=== PATIENT | female | born 1950 | race Caucasian/White ===

== ENCOUNTER 2016-09-21 09:20 | Inpatient (IN) | payer OTHER ==
[2016-09-16 16:48] LABS: BASO % 0.4 %; BASO ABS # 0.04 K/uL (0-0.2); COMPLETE YES; EOS % 1.8 %; HEMATOCRIT 40.3 % (37-47); IG% 0.2 %; LYMPH ABS # 4.73 K/uL (1.2-3.4); MEAN CELL VOLUME 84.8 fL (80-100); MEAN CORPUSCULAR HEMOGLOBIN 28.2 pg (25-34); MEAN CORPUSCULAR HGB CONC 33.3 g/dl (32-36); MONO % 4.6 %; PLATELET COUNT 260 K/uL (130-400); RED BLOOD COUNT 4.75 M/uL (4.2-5.4); WHITE BLOOD COUNT 10.99 K/uL (4.8-10.8)
[2016-09-16 16:55] LABS: URINE APPEARANCE CLEAR (CLEAR); URINE BILIRUBIN NEG (NEG); URINE COLOR YELLOW; URINE EPITHELIAL CELL AUTO 20-30 /lpf (0-5); URINE NITRITE NEG (NEG); URINE SPECIFIC GRAVITY 1.014 (1.000-1.030); UROBILINOGEN NEG (NEG)
[2016-09-16 16:58] LABS: PROTHROMBIN TIME (PATIENT) 10.7 SECONDS (9.0-12.0)
[2016-09-16 17:03] LABS: MANUAL MICROSCOPIC REQUIRED? NO; REVIEW REQ? NO
[2016-09-16 17:28] LABS: BLOOD UREA NITROGEN 16 mg/dl (7-18); BUN/CREATININE RATIO 15.8 (10-20); CARBON DIOXIDE 31 mmol/L (21-32); CHLORIDE 106 mmol/L (98-107); GLUCOSE 143 mg/dl (70-99); POTASSIUM 3.7 mmol/L (3.5-5.1); SODIUM 143 mmol/L (136-145)
[2016-09-20 16:15] VITALS: BMI 35.0
--- NOTE | 2016-09-20 16:32 | HISTORY & PHYSICAL EXAMINATION ---
DATE OF ADMISSION: 09/21/2016 HISTORY OF PRESENT ILLNESS: The patient is 5 foot 10, 236 pounds, BMI of 46.09. A 65-year-old white female who presents with pain about her left knee. She had a rupture of her VMO repair and presents for repair of quad tendon VMO. She has previously undergone total knee arthroplasty 9 months prior and presents after noticing over the course of the last month, a palpable defect in the region of her VMO. She presents for VMO repair, possible poly change pending findings at time of examination. PAST MEDICAL HISTORY: Consistent with hypertension, mitral valve, anxiety, diabetes, acid reflux. PAST SURGICAL HISTORY: Consistent with previous total knee arthroplasty, previous ACL reconstruction and previous arthroscopy left knee. FAMILY HISTORY: Unremarkable and noncontributory. SOCIAL HISTORY: The patient denies history of smoking, alcohol use or recreational drug use. ALLERGIES: INCLUDE BETADINE. MEDICATIONS: Include acetaminophen 500 mg q. 8 hours, Celebrex 100 mg twice daily every day, Zofran 8 mg p.r.n., OxyContin 10 mg q. 12 hours p.r.n., Benicar 20/12.5 mg p.o. daily, simvastatin 20 mg p.o. at bedtime, Norvasc 5 mg p.o. daily, Nexium 40 mg p.o. daily. PAST MEDICAL HISTORY: Unremarkable. See history of present illness for pertinent positives. PHYSICAL EXAMINATION: GENERAL: Reveals a very pleasant 65-year-old white female with a disruption of her VMO quad tendon. She presents for VMO quad repair as noted above. She has failed attempts at conservative management, has palpable defect with weakness of extension to her knee. X-rays revealed no evidence of other bony or osseous abnormalities noted. HEAD, EYES, EARS, NOSE, AND THROAT: Unremarkable, atraumatic, normocephalic. HEART: Regular at 68 beats per minute. No murmurs are noted. LUNGS: Clear, no rales, rhonchi, or wheezes noted. ABDOMEN: Soft, nontender, nondistended. Bowel sounds are present in all 4 quadrants. RECTAL: No rectal examination was performed. MUSCULOSKELETAL EXAMINATION: Consistent with that of a palpable defect of the VMO quad from a disruption of VMO quad repair. The patient presents for VMO quad repair, postoperative pain management, DVT prophylaxis, antibiotics as noted above.
[~2016-09-21] VITALS: Ht 175.3 cm; Wt 107.3 kg
[2016-09-21] VITALS (8 sets, daily range): BP systolic 110–158; BP diastolic 61–81; PULSE 51–70; TEMP 36.4–36.9; O2SAT 94–100; Ht 175.3 cm; Wt 107.3 kg
--- NOTE | 2016-09-21 06:56 | History & Physical Bridge Note ---
H&P Re-Evaluation Bridge Note: I have examined the patient, reviewed the History & Physical and in the interval since the performance of the History & Physical I have noted the following changes of clinical significance: No changes noted
[~2016-09-21 09:20] MED LIST: ACET-1256 PO; ACT15 PO; ALPR-411 PO; AMLO-110 PO; AMR2 PO; BUPIVACAINE 0.5 % 5 MG/1 ML PF 10ML VIAL ONE; CALC600T9 PO; CEFAZOLIN 1000MG/55 ML D5W IV SCH; COEN75CA PO; CYCL0.052 OP; KCLP20 PO; LACTATED RINGER'S 1000ML 1,000 ML IV SCH; MACU HEALTH; MISSING PHYSICIAN SIGNATURE ON ORDER SCH; MULT-730 PO; NXM/40 PO; OLME40TA30 PO; OMEG10007 PO; OXYC1TAB3 PO; PARO1TAB27 PO
[2016-09-21] MEDS ORDERED: LIDOCAINE HCL 2% 2 ML VIAL (20MG/ML) ONE (09:38)
[2016-09-21] MEDS ORDERED: PROPOFOL IV EMULSION 10 MG/ML 20 ML VIAL IV ONE (09:38)
[2016-09-21] MEDS ORDERED: MIDAZOLAM HCL 1 MG/ML 2ML VIAL ONE (09:38)
[2016-09-21] MEDS ORDERED: FENTANYL CITRATE INJ 50 MCG/1 ML 2 ML VIAL ONE (09:39)
[2016-09-21] MEDS ORDERED: MEPERIDINE HCL 25 MG/ML CARP IV PRN (09:45)
[2016-09-21] MEDS ORDERED: MoRPHine SULFATE 10 MG/ML CARP/VIAL IV PRN ×3 (09:45→17:15)
[2016-09-21] MEDS ORDERED: EpHEDrine SULFATE INJ 50 MG/ML AMP IV PRN (09:45)
[2016-09-21] MEDS ORDERED: ONDANSETRON INJ 2 MG/ML 2 ML VIAL IV PRN ×2 (09:45→12:30)
[2016-09-21] MEDS ORDERED: FENTANYL CITRATE INJ 50 MCG/1 ML 2 ML VIAL IV PRN (09:45)
[2016-09-21] MEDS ORDERED: ATROPINE SULFATE 0.1 MG/ML 5ML SYR IV PRN (09:45)
[2016-09-21] MEDS ORDERED: CEFAZOLIN IV 2,000 MG/60 ML D5W IV ONE (10:29)
[2016-09-21] MEDS ORDERED: NURSING VERBAL MED ORDER STA (10:33)
[2016-09-21] MEDS ORDERED: SCOPOLAMINE 1.5 MG TDSY TD ONE (10:38)
[2016-09-21] MEDS ORDERED: BACITRACIN 50000 UNIT VIAL ONE (11:05)
[2016-09-21] MEDS ORDERED: ONDANSETRON INJ 2 MG/ML 2 ML VIAL ONE (11:50)
--- NOTE | 2016-09-21 12:00 | [facility] Post Operative Brief Note ---
Immediate Operative Summary Operative Date Sep 21, 2016. Pre-Operative Diagnosis quad tear vmo tear lt knee sp tka Post-Operative Diagnosis same Procedure(s) Performed VMO quad repair with poly change to 5x12 poly sn journey 2 and lateral release Surgeon margoth Blasting Cap Assembler Surgeon(s) hallie Estimated Blood Loss 5cc Findings tear vmo quad laxity mcl lcl Specimens none Complication(s) None Disposition Recovery Room / PACU
[2016-09-21] MEDS ORDERED: BISACODYL 10 MG SUPP PR PRN (12:30)
[2016-09-21] MEDS ORDERED: MAGNESIUM HYDROXIDE SUSP 30 ML UDC PO PRN (12:30)
[2016-09-21] MEDS ORDERED: SOD PHOSPHATE/SOD BIPHOSPHATE ENEMA 132 ML BTL PR PRN (12:30)
[2016-09-21] MEDS ORDERED: ALUMINUM/MAGNESIUM/SIMETH (MAALOX MAX) 30 ML UDC PO PRN (12:30)
[2016-09-21] MEDS ORDERED: MoRPHine SULFATE 2 MG/ML CARP IV PRN ×4 (12:30→17:15)
--- NOTE | 2016-09-21 12:38 | OPERATIVE REPORT ---
DATE OF OPERATION: 09/21/2016 DATE: 09/21/2016. PREOPERATIVE DIAGNOSIS: Tear quadriceps and vastus medialis oblique left total knee arthroplasty with medial and lateral collateral ligament laxity. POSTOPERATIVE DIAGNOSIS: Same. PROCEDURE: VMO quad repair left knee with poly exchange from a 5 x 10 mm Journey II poly to a 5 x 12 mm Journey II poly. SURGEON: Dr. Wyman. FIXED INCOME MANAGER: Shar Fernando PA-C, who was necessary for prepping, draping, retraction, wound closure of the deep fascial, subQ and skin and was necessary for the case. ESTIMATED BLOOD LOSS: 5 mL. COMPLICATIONS: None. TOURNIQUET TIME: 40 minutes. HISTORY OF PRESENT ILLNESS: The patient is a very pleasant 65-year-old white female who presents after having undergone a knee replacement approximately a year prior. She presents as she had been doing well and developed a palpable defect in the region of her VMO attachment with some mild tracking of her patella. At the time of surgery, the above findings are noted as well as laxity of the medial and lateral collateral ligaments. For this reason the poly was changed to a size 12 from a 10. OPERATION AND FINDINGS: PROCEDURE: After proper prepping and draping of the left lower extremity, an incision was made in the region of the previous incision. Dissection was carried down to the region of the palpable defect. Palpable defect was consistent with that of a partial dehiscence of the deep repair of VMO quad tendon. Subsequently, the patellofemoral tracking was evaluated. The scar from the anterior synovium was all excised. The partial synovectomy was performed. The poly was removed. It was upsized to a size 12, which gave excellent stability in both full extension, mid flexion and flexion in both medial and lateral planes. Subsequently, the wound was irrigated with copious amounts of sterile saline solution. The poly was upsized to a 5 x 12 mm poly. Stability was noted to be excellent. The patellofemoral joint tracking was reevaluated. An extra synovial lateral retinacular release was performed. Wound was irrigated with copious amounts of sterile saline solution. Subsequently, the VMO was repaired after excising scar tissue with #2 FiberWire as well as #1 Vicryl. Excellent tracking patellofemoral mechanism was noted to be present at the time. Meticulous hemostasis was obtained and maintained. The wound was once again irrigated with copious amounts of sterile saline solution. Skin was closed with 2-0 Vicryl and skin clips. A sterile compression dressing was placed. The patient was placed in a knee immobilizer and taken to recovery room in stable condition. Estimated tourniquet time 40 minutes. Blood loss 5 mL. I attest to the content of the Intraoperative Record and any orders documented therein. Any exceptio ns are noted below.
[2016-09-21] MEDS ORDERED: PHARMACY GLYCEMIC MGMT CONSULT PRN (13:25)
--- NOTE | 2016-09-21 13:28 | Anesthesiology Progress Note ---
Anesthesia Post Op Note Date & Time Sep 21, 2016 at 13:28 Vital Signs Pain Intensity: 0 Vital Signs Past 12 Hours Date Time Temp Pulse Resp B/P Pulse Ox O2 Delivery O2 Flow Rate FiO2 09/21/16 13:15 49 16 110/58 92 Room Air 09/21/16 13:05 50 16 126/67 95 Room Air 09/21/16 12:55 36.4 50 16 126/62 95 Room Air 09/21/16 12:40 51 16 119/75 97 Room Air 09/21/16 12:30 60 16 121/63 100 Room Air 09/21/16 12:23 36 71 16 140/67 100 Room Air 2 09/21/16 09:46 36.5 63 20 158/72 97 Room Air Notes Mental Status: alert / awake / arousable, participated in evaluation Pt Amnestic to Procedure: Yes Nausea / Vomiting: adequately controlled Pain: adequately controlled Airway Patency, RR, SpO2: stable & adequate BP & HR: stable & adequate Hydration State: stable & adequate Neuraxial Anesthesia: was administered, sensory block is resolving Anesthetic Complications: no major complications apparent
--- NOTE | 2016-09-21 14:02 | Pharmacy Progress Note ---
Glycemic Control Intl Consult Date of Service Sep 21, 2016. Scope Glycemic Pharmacist consulted by Shar Fernando PA-C on 09/21/16 for glycemic control and to write orders per [facility] inpatient glycemic control protocol Objective Weight (Kilograms): 107.27 HbA1c 6.4% on 04/11/16 Recent Pertinent Medications Outpatient Anti-diabetic Regimen: * Amaryl 2mg PO QAM (last taken 09/20/16) * Actos 30mg PO QAM (last taken 09/20/16) Risk Factors for Insulin Resistance: * Recent Surgery * Diet Assessment & Plan ASSESSMENT: * 65yo T2DM female with presumed adequate glycemic control per recent A1c 6.4% in 03/2016 * This value is outdated - will re-order per protocol * Pt is maintained on oral antidiabetic agents as an outpatient * Oral agents are not recommended for inpatient use d/t drug interactions, changing PO intake, and difficulty titrating for acute hyper/hypoglycemia. ADA recommends re-initiating outpatient oral agents 1-2 days prior to discharge if/ when appropriate if they were held on admission. * Will hold oral agents for admission and utilize SQ basal bolus insulin regimen which is the recommended regimen for inpatient glycemic control. * Will initiate weight based insulin dosing for insulin regina patient and titrate based on BSG trends. * Start basal insulin only if needed for sustained hyperglycemia (BSG > 180mg/ dl) * ADA & AACE recommend a goal blood sugar range 140-180 mg/dl for the majority of critically ill & non-critically ill patients. However, more stringent targets may be selected in individual cases. Will utilize more stringent goal of 110-140mg/dl based on patient age & comorbidities. Additionally, tighter glycemic control is warranted to facilitate wound/infection healing. PLAN FOR INPATIENT GLYCEMIC CONTROL: * Hold outpatient oral diabetes medications * May resume 1-2 days prior to discharge after renal function and PO intake assessed * Will d/c CR if/when oral agents resumed * Start Basal insulin if BSG > 180mg/dl * Consider Lantus 10 units * Start bolus insulin while oral agents on hold. Use NovoLog per scale ACHS or Q6hrs while NPO * Goal Range: Low 110 mg/dL - High 140 mg/dL * Correction Factor: 30 mg/dL/unit * Nutritional / Prandial insulin per carb ratio of 1 unit per 10 grams CHO consumed * Order A1c for tomorrow with AM labs * Please note that the plan above was derived based on current level of insulin resistance and hospital stress. These recommendations are appropriate for inpatient admission only. Plan of care upon discharge will need to be reassessed to avoid potential outpatient hypo/hyperglycemia. Thank you.
[2016-09-21] MEDS ORDERED: GLUCOSE 40% GEL 15 GM TUBE PO PRN (14:15)
[2016-09-21] MEDS ORDERED: GLUCAGON FOR INJ 1 MG VIAL SQ PRN (14:15)
[2016-09-21] MEDS ORDERED: GLUCOSE 10 TABS/TUBE PO PRN (14:15)
[2016-09-21] MEDS ORDERED: DEXTROSE 50% 50 ML SYR IV PRN (14:15)
[2016-09-21] MEDS ORDERED: MoRPHine SULFATE 4 MG/ML 1 ML CARP\\VIAL IV PRN ×2 (14:30→17:15)
[2016-09-21] MEDS: OXYCODONE HCL IR 5 MG TAB (IMMEDIATE RELEASE) PO PRN ×3 (14:39→23:57)
--- NOTE | 2016-09-21 14:54 | DIAGNOSTIC IMAGING REPORT ---
LEFT KNEE 1 OR 2 VIEWS ROUTINE CLINICAL HISTORY: Postop knee arthroplasty COMPARISON: 05/04/2016 DISCUSSION: There are postsurgical changes of a total left knee arthroplasty and patellar resurfacing. No acute fractures or dislocations are visualized. There is a suprapatellar joint effusion. There is air in the soft tissues consistent with recent surgery. There are overlying skin mikey and surgical drains. IMPRESSION: Postsurgical changes of a total left knee arthroplasty. Electronically signed by: Philipp Greer M.D. 09/21/2016 2:53 PM Dictated Date/Time: 09/21/2016 2:51 PM
[2016-09-21] MEDS: CHECK SCOPOLAMINE PATCH PLACEMENT SCH ×2 (15:34→23:50)
[2016-09-21] MEDS: SODIUM CHLORIDE 0.9% 1000ML 1,000 ML IV SCH ×2 (15:34→23:56)
[2016-09-21] MEDS ORDERED: NURSING VERBAL MED ORDER ONE ×4 (17:00→18:30)
[2016-09-21] MEDS: ACETAMINOPHEN 500 MG TAB PO SCH (17:11)
[2016-09-21] MEDS ORDERED: KETOROLAC TROMETHAMINE 30 MG/ML VIAL IV. ONE (17:30)
[2016-09-21] MEDS: INSULIN ASPART 100 UNITS/ML 3 ML PEN SC SCH ×2 (18:13→20:45)
[2016-09-21] MEDS: CEFAZOLIN IV 2,000 MG in DEXTROSE 5% 50ML 50 ML IV SCH (20:41)
[2016-09-21] MEDS: CALCIUM 600MG + VIT D 400 IU TAB PO SCH (20:42)
[2016-09-21] MEDS: DOCUSATE SODIUM 100 MG CAP PO SCH (20:43)
[2016-09-21] MEDS: ASPIRIN 81 MG ECTAB PO SCH (20:44)
[2016-09-21] MEDS ORDERED: ALPRAZOLAM 0.5 MG TAB PO SCH (21:00)
[2016-09-21] MEDS ORDERED: SENNA 8.6 MG TAB PO SCH (21:00)
[2016-09-21] MEDS: OXYCODONE HCL 10 MG TABCR (OXYCONTIN) PO SCH (21:00)
[2016-09-21] MEDS ORDERED: KETOROLAC TROMETHAMINE 15 MG/ML VIAL IV. PRN (23:00)
[2016-09-22] MEDS: ACETAMINOPHEN 500 MG TAB PO SCH ×2 (01:55→09:45)
[2016-09-22 03:11] VITALS: BP 110/58; PULSE 59; TEMP 36.8; O2SAT 95
[2016-09-22] MEDS: CEFAZOLIN IV 2,000 MG in DEXTROSE 5% 50ML 50 ML IV SCH (03:54)
[2016-09-22] MEDS ORDERED: CEFAZOLIN 2000 MG/60 ML D5W 60 ML IV SCH (06:00)
[2016-09-22 06:23] LABS: INR 1.1 (0.9-1.1); PROTHROMBIN TIME (PATIENT) 11.3 SECONDS (9.0-12.0)
[2016-09-22 06:45] LABS: BUN/CREATININE RATIO 11.7 (10-20); CALCIUM 8.1 mg/dl (8.5-10.1); CREATININE 1.1 mg/dl (0.60-1.20); POTASSIUM 3.7 mmol/L (3.5-5.1)
[2016-09-22 06:55] VITALS: BP 108/68; PULSE 64; TEMP 36.8; O2SAT 93
--- NOTE | 2016-09-22 07:00 | Orthopedic Progress Note ---
Orthopedic Progress Note Date of Service Sep 22, 2016. Subjective Post OP Day: 1 Reports: feeling well, pain controlled w PO medications, Denies: SOB, calf pain , chest pain, complaints, light headedness, nausea / vomiting Objective calves soft nontender, N/V intact, capillary refill less than 2 sec., dressing C /D/I, A&O x3, toes mobile Date Time Temp Pulse Resp B/P Pulse Ox O2 Delivery O2 Flow Rate FiO2 09/22/16 06:55 36.8 64 19 108/68 93 Room Air 09/22/16 03:11 36.8 59 14 110/58 95 Room Air 09/21/16 23:40 Room Air 09/21/16 22:57 36.9 60 14 110/61 94 Room Air 09/21/16 20:39 36.6 64 16 130/72 94 Room Air 09/21/16 19:05 Room Air 09/21/16 16:46 36.7 70 16 145/70 94 09/21/16 15:24 55 16 151/79 100 09/21/16 14:54 36.5 53 18 133/81 98 Room Air 09/21/16 14:26 100 Nasal Cannula 2.0 09/21/16 14:20 36.5 51 18 158/72 100 Room Air 09/21/16 13:50 36.4 54 16 135/71 100 Nasal Cannula 2.0 09/21/16 13:50 100 Nasal Cannula 2.0 09/21/16 13:35 53 14 103/54 92 Room Air 09/21/16 13:25 49 16 127/54 93 Room Air 09/21/16 13:15 49 16 110/58 92 Room Air 09/21/16 13:05 50 16 126/67 95 Room Air 09/21/16 12:55 36.4 50 16 126/62 95 Room Air 09/21/16 12:40 51 16 119/75 97 Room Air 09/21/16 12:30 60 16 121/63 100 Room Air 09/21/16 12:23 36 71 16 140/67 100 Room Air 2 09/21/16 09:46 36.5 63 20 158/72 97 Room Air Laboratory Results 24 Hours: Test 09/22/16 05:45 Prothromb Time International Ratio 1.1 Prothrombin Time 11.3 SECONDS Assessment & Plan Assessment: POD #1 s/p left knee poly change and med retinaculum repair -doing well -dvt proph with tru/scd/asa -plan for d/c home today after PT -f/u in office in 2 weeks Discharge Planning Discharge Planning: home with oppt DVT Prophylaxis: TEDs, SCDs, ASA
[2016-09-22] MEDS ORDERED: ASPEC81 PO (07:04)
[2016-09-22] MEDS ORDERED: CLB200 PO (07:04)
[2016-09-22] MEDS ORDERED: OXYSR10 PO (07:04)
[2016-09-22] MEDS ORDERED: ACET-1138 PO (07:04)
[2016-09-22] MEDS ORDERED: RXC5 PO (07:04)
--- NOTE | 2016-09-22 07:14 | Discharge Instructions ---
Discharge Instructions Date of Service Sep 22, 2016. Admission Reason for Admission: Lt Knee Other Muscle(S) & Tendon(S) Strain;Z01.812 Discharge Discharge Diagnosis / Problem: left knee medial retinaculum repair and poly exchange Discharge Goals Goal(s): Decrease discomfort, Improve function, Increase independence Activity Recommendations Activity Limitations: as noted below Weightbearing Status: Left weightbearing (as tolerated) . Instructions / Follow-Up Instructions / Follow-Up ACTIVITY RECOMMENDATIONS: SELF CARE INSTRUCTIONS AFTER TOTAL KNEE REPLACEMENT A. You may need to continue a physical therapy program after discharge from the hospital. There are several options available to you. Your doctor will assist you in selecting the best one for you. 1. An out-patient facility 2 to 3 times a week for therapy or home therapy. 2. Continue working on all exercises taught to you in the hospital. Your goals should be to increase bending of your knee to 90 degrees and beyond and to fully straighten your knee. B. You may progress at your own pace from walking with a walker or crutches to a cane; then to no assistive devices. C. Make walking a part of your daily routine. Be up as much as comfortable with rest periods throughout the day. Rest with leg elevation is very important. Use the ice wrap frequently for the first 3-4 weeks. D. There are no restrictions on activities. You may ride in a car, shop, participate in childcare director and all social activities. E. Wear the long elastic stockings (ALFIE hose) 20 hours a day for 2 weeks after surgery. They can be removed several times a day for laundering and for a bath. F. You may shower, no tub baths until cleared by your doctor. SPECIAL CARE INSTRUCTIONS: VERY IMPORTANT TO READ AND REVIEW A. There are a few signs you need to watch for after you are home. Call [facility] if you notice any of the followin. Increased severe knee pain. Some pain is expected especially when you exercise. 2. Increased swelling in your leg or knee; pain or swelling of the calf muscle in either lower leg. 3. Any fluid drainage from the incision. 4. Shortness of breath or chest pain. B. Please call [facility] at if you have any concerns or questions about your operation or recovery. The doctor or his nurse will return your call promptly. C. You must take antibiotics before dental work, bladder, bowel or other surgery. Your doctor will provide you with a permanent care to carry describing this precaution. IMPORTANT: * REMEMBER TO TAKE ASPIRIN, 81 MG, TWICE DAILY FOR 4 WEEKS UNLESS OTHERWISE DIRECTED. THIS IS YOUR BLOOD THINNER. * HIGH RISK PATIENTS MAY BE PRESCRIBED A STRONGER BLOOD THINNER. THIS WILL BE PROVIDED AT DISCHARGE. * CALL IF INCREASED PAIN, REDNESS, DRAINAGE OR FEVER GREATER THAT 101. * WEAR ALFIE HOSE 20 HOURS PER DAY FOR 2 WEEKS. * YOU MAY HAVE A LARGE BAND-AID LIKE DRESSING (SILVERON). THIS WILL REMAIN ON YOUR INCISION FOR 7 DAYS, THEN CAN BE REMOVED. IF INCISION IS LEAKING THROUGH DRESSING, CALL THE OFFICE . FOLLOW UP VISIT: If appointment is not already scheduled: Please call [facility] to make a follow-up appointment for 2 weeks after your surgery at . Current Hospital Diet Patient's current hospital diet: Diabetes Type 2 Diet Discharge Diet Recommended Diet: Diabetes Type 2 Diet Procedures Procedures Performed: Left Knee Open Repair of Rupture Vastus Medialis Oblique, with Poly Exchange Pending Studies Studies pending at discharge: no Laboratory Results Hemoglobin A1c Test 09/22/16 05:45 Range/Units Medical Emergencies . Who to Call and When: Medical Emergencies: If at any time you feel your situation is an emergency, please call [phone] immediately. . Non-Emergent Contact Non-Emergency issues call your: Primary Care Provider, Surgeon . "Provider Documentation" section prepared by Shar Fernando. VTE Core Measure Inpt VTE Proph given/why not?: Other Anticoagulation (ASA 81mg po bid x 1 month ), Lorena Antonio, SCD's [place] Drug Monitoring Program Search Results: patient reviewed within database, no issues identified
[2016-09-22] MEDS: CHECK SCOPOLAMINE PATCH PLACEMENT SCH (07:29)
[2016-09-22 07:30] LABS: MEAN CELL VOLUME 86.7 fL (80-100); MEAN CORPUSCULAR HEMOGLOBIN 28.6 pg (25-34); MEAN CORPUSCULAR HGB CONC 32.9 g/dl (32-36); PLATELET COUNT 179 K/uL (130-400); RED BLOOD COUNT 3.92 M/uL (4.2-5.4); WHITE BLOOD COUNT 8.65 K/uL (4.8-10.8)
--- NOTE | 2016-09-22 07:30 | Discharge Summary ---
Orthopedic Discharge Summary Admission Date/Reason Sep 21, 2016 at 12:38 Lt Knee Other Muscle(S) & Tendon(S) Strain;Z01.812. Discharge Date/Disposition Sep 22, 2016 Home Diagnosis Principal Diagnosis: left knee quad tear Procedure(s) Performed VMO quad repair left knee with poly exchange from a 5 x 10 mm Journey II poly to a 5 x 12 mm Journey II poly. Consultations NONE Medication Reconciliation New Medications: Celecoxib (Celebrex) 200 Mg Cap 200 MG PO BID for 30 Days, #60 CAP Acetaminophen (Tylenol Extra Strength) 500 Mg Tab 1000 MG PO Q8H, #126 TAB Aspirin (Aspirin EC Low Dose) 81 Mg Ectab 81 MG PO BID for 30 Days, #60 TABS Oxycodone HCl (Oxycontin) 10 Mg Tabcr 10 MG PO Q12, #20 Oxycodone HCl (Oxycodone HCl) 5 Mg Tab 5-10 MG PO Q4H PRN for Pain, #60 TAB Continued Medications: Alprazolam (Xanax) 0.5 Mg Tab 0.5 MG PO HS, TAB Amlodipine (Norvasc) 5 Mg Tab 5 MG PO QAM, TAB Calcium Carbonate-Vitamin D (Calcium + D) 1 Tab Tab 400 INTUNIT PO BID Cyclosporine (Ophth) (Restasis) 0.05 % Emu 1 DROP OP QAM, BTL Esomeprazole Magnesium (Nexium) 40 Mg Capcr 40 MG PO QAM, 0 Refills Glimepiride (Glimepiride) 2 Mg Tab 2 MG PO QAM Multiple Vitamins W/ Minerals (Alive Womens 50+) 1 Tab Tab 1 TAB PO QAM CHEWY TABLET Olmesartan/Hctz (Benicar Hct 40/12.5) Tab 1 TAB PO QAM, TAB Paroxetine (Paxil) 20 Mg Tab 40 MG PO QAM, 0 Refills Pioglitazone (Actos) 15 Mg Tab 30 MG PO QAM Potassium Chloride (Klor-Con) 20 Meq Pow 1 TAB PO QAM [[facility] [employer]] () Unknown Strength Unknown Dose MESO-ZEAXANTHIN 10 MG IN AM LUTEIN 10 MG ZEAXANTHIN 2 MG (WRITTEN OFF PILL BOTTLE) THREE ITEMS IN ONE PILL - TAKES ONE PILL PER DAY - PATIENT WILL BRING OWN Discontinued Medications: Acetaminophen (Tylenol) 500 Mg Tab 1000 MG PO Q8H PRN for RN, TAB Coenzyme Q10 (Ubidecarenone) (Co Q-10) 75 Mg Cap 100 MG PO QPM, CAP Fish Oil (Ronceverte-3) 1 Ea Cap 1 CAP PO QAM, CAP Oxycodone Ir (Roxicodone Ir) 5 Mg Tab 1-2 TAB PO Q4H PRN for Severe Pain, #12 TAB Admission Physical Exam As per Admitting History & Physical. Hospital Course Patient was a same day admission after undergoing a successful left knee quad repair and poly exchange. she tolerated the procedure well. Post-operatively, her activity was progressed and well tolerated. Please refer to daily progress notes and PT notes for complete details. After exam on 09/22/16, patient felt to be stable for discharge home with OPPT. Patient will f/u in the office in 2 weeks for further evaluation including x-rays and incision check, sooner if having any issues or concerns. Below are pertinent labs/studies during their hospital stay: Last Vital Signs Documentation Date Time Temp Pulse Resp B/P Pulse Ox O2 Delivery O2 Flow Rate FiO2 09/22/16 06:55 36.8 64 19 108/68 93 Room Air 09/21/16 14:26 2.0 Test 09/22/16 05:45 Prothromb Time International Ratio 1.1 Prothrombin Time 11.3 SECONDS Test 09/16/16 15:38 09/21/16 20:37 09/22/16 05:45 Range/Units RDW Standard Deviation 50.9 36.4-46.3 fL RDW Coefficient of Variation 16.4 11.5-14.5 % White Blood Count 10.99 4.8-10.8 K/uL Red Blood Count 4.75 4.2-5.4 M/uL Hemoglobin 13.4 12.0-16.0 g/dL Hematocrit 40.3 37-47 % Mean Corpuscular Volume 84.8 80-100 fL Mean Corpuscular Hemoglobin 28.2 25-34 pg Mean Corpuscular Hemoglobin Concent 33.3 32-36 g/dl Platelet Count 260 130-400 K/uL Mean Platelet Volume 10.0 7.4-10.4 fL Neutrophils (%) (Auto) 50.0 % Lymphocytes (%) (Auto) 43.0 % Monocytes (%) (Auto) 4.6 % Eosinophils (%) (Auto) 1.8 % Basophils (%) (Auto) 0.4 % Neutrophils # (Auto) 5.49 1.4-6.5 K/uL Lymphocytes # (Auto) 4.73 1.2-3.4 K/uL Monocytes # (Auto) 0.51 0.11-0.59 K/uL Eosinophils # (Auto) 0.20 0-0.5 K/uL Basophils # (Auto) 0.04 0-0.2 K/uL Immature Granulocyte % (Auto) 0.2 % Immature Granulocyte # (Auto) 0.02 0.00-0.02 K/uL Activated Partial Thromboplast Time 27.0 21.0-31.0 SECONDS Partial Thromboplastin Ratio 1.0 Urine Color YELLOW Urine Appearance CLEAR CLEAR Urine pH 5.0 4.5-7.5 Urine Specific [place] 1.014 1.000-1.030 Urine Protein NEG NEG Urine Glucose (UA) NEG NEG Urine Ketones NEG NEG Urine Occult Blood NEG NEG Urine Nitrite NEG NEG Urine Bilirubin NEG NEG Urine Urobilinogen NEG NEG Urine Leukocyte Esterase MODERATE NEG Urine WBC (Auto) 10-30 0-5 /hpf Urine RBC (Auto) 5-10 0-4 /hpf Urine Hyaline Casts (Auto) 1-5 0-5 /lpf Urine Epithelial Cells (Auto) 20-30 0-5 /lpf Urine Bacteria (Auto) NEG NEG Bedside Glucose 121 70-90 mg/dl Prothrombin Time 11.3 9.0-12.0 SECONDS Prothromb Time International Ratio 1.1 0.9-1.1 Sodium Level 140 136-145 mmol/L Potassium Level 3.7 3.5-5.1 mmol/L Chloride Level 106 98-107 mmol/L Carbon Dioxide Level 29 21-32 mmol/L Anion Gap 5.0 3-11 mmol/L Blood Urea Nitrogen 13 7-18 mg/dl Creatinine 1.10 0.60-1.20 mg/dl Est Creatinine Clear Calc Drug Dose 66.5 ml/min Estimated GFR () 61.0 Estimated GFR (Non- 52.6 BUN/Creatinine Ratio 11.7 10-20 Random Glucose 125 70-99 mg/dl Calcium Level 8.1 8.5-10.1 mg/dl Discharge Instructions ACTIVITY RECOMMENDATIONS: SELF CARE INSTRUCTIONS AFTER TOTAL KNEE REPLACEMENT A. You may need to continue a physical therapy program after discharge from the hospital. There are several options available to you. Your doctor will assist you in selecting the best one for you. 1. An out-patient facility 2 to 3 times a week for therapy or home therapy. 2. Continue working on all exercises taught to you in the hospital. Your goals should be to increase bending of your knee to 90 degrees and beyond and to fully straighten your knee. B. You may progress at your own pace from walking with a walker or crutches to a cane; then to no assistive devices. C. Make walking a part of your daily routine. Be up as much as comfortable with rest periods throughout the day. Rest with leg elevation is very important. Use the ice wrap frequently for the first 3-4 weeks. D. There are no restrictions on activities. You may ride in a car, shop, participate in hydrogenation still operator and all social activities. E. Wear the long elastic stockings (ALFIE hose) 20 hours a day for 2 weeks after surgery. They can be removed several times a day for laundering and for a bath. F. You may shower, no tub baths until cleared by your doctor. SPECIAL CARE INSTRUCTIONS: VERY IMPORTANT TO READ AND REVIEW A. There are a few signs you need to watch for after you are home. Call [facility] if you notice any of the followin. Increased severe knee pain. Some pain is expected especially when you exercise. 2. Increased swelling in your leg or knee; pain or swelling of the calf muscle in either lower leg. 3. Any fluid drainage from the incision. 4. Shortness of breath or chest pain. B. Please call [facility] at if you have any concerns or questions about your operation or recovery. The doctor or his nurse will return your call promptly. C. You must take antibiotics before dental work, bladder, bowel or other surgery. Your doctor will provide you with a permanent care to carry describing this precaution. IMPORTANT: * REMEMBER TO TAKE ASPIRIN, 81 MG, TWICE DAILY FOR 4 WEEKS UNLESS OTHERWISE DIRECTED. THIS IS YOUR BLOOD THINNER. * HIGH RISK PATIENTS MAY BE PRESCRIBED A STRONGER BLOOD THINNER. THIS WILL BE PROVIDED AT DISCHARGE. * CALL IF INCREASED PAIN, REDNESS, DRAINAGE OR FEVER GREATER THAT 101. * WEAR ALFIE HOSE 20 HOURS PER DAY FOR 2 WEEKS. * YOU MAY HAVE A LARGE BAND-AID LIKE DRESSING (SILVERON). THIS WILL REMAIN ON YOUR INCISION FOR 7 DAYS, THEN CAN BE REMOVED. IF INCISION IS LEAKING THROUGH DRESSING, CALL THE OFFICE . FOLLOW UP VISIT: If appointment is not already scheduled: Please call [facility] to make a follow-up appointment for 2 weeks after your surgery at .
[2016-09-22] MEDS: OXYCODONE HCL IR 5 MG TAB (IMMEDIATE RELEASE) PO PRN ×2 (07:39→14:10)
[2016-09-22 08:48] LABS: ESTIMATED AVERAGE GLUCOSE 126 mg/dl; HA1C FLAG Normal (Normal)
[2016-09-22] MEDS ORDERED: AMLODIPINE BESYLATE 5 MG TAB PO SCH (09:00)
[2016-09-22] MEDS ORDERED: PANTOprazole SOD 40 MG TAB PO SCH (09:00)
[2016-09-22] MEDS ORDERED: CEROVITE ADV FORMULA TAB PO SCH (09:00)
[2016-09-22] MEDS ORDERED: PAROXETINE 20 MG TAB PO SCH (09:00)
[2016-09-22] MEDS ORDERED: POTASSIUM CHLORIDE PWD 20 MEQ PACK PO SCH (09:00)
[2016-09-22] MEDS ORDERED: MULTIVITAMIN TAB PO SCH (09:00)
[2016-09-22 09:38] VITALS: BP 144/73; PULSE 82; O2SAT 93
[2016-09-22] MEDS: OXYCODONE HCL 10 MG TABCR (OXYCONTIN) PO SCH (09:46)
[2016-09-22] MEDS: ASPIRIN 81 MG ECTAB PO SCH (09:46)
[2016-09-22] MEDS: DOCUSATE SODIUM 100 MG CAP PO SCH (09:46)
[2016-09-22] MEDS: CALCIUM 600MG + VIT D 400 IU TAB PO SCH (09:46)
[2016-09-22] MEDS: INSULIN ASPART 100 UNITS/ML 3 ML PEN SC SCH ×2 (09:51→13:47)
--- NOTE | 2016-09-22 10:44 | Anesthesiology Progress Note ---
Anesthesia Post Op Note Date & Time Sep 22, 2016 at 10:43 Vital Signs Vital Signs Past 12 Hours Date Time Temp Pulse Resp B/P Pulse Ox O2 Delivery O2 Flow Rate FiO2 09/22/16 09:38 82 93 09/22/16 07:20 Room Air 09/22/16 06:55 36.8 64 19 108/68 93 Room Air 09/22/16 03:11 36.8 59 14 110/58 95 Room Air 09/21/16 23:40 Room Air 09/21/16 22:57 36.9 60 14 110/61 94 Room Air Notes Mental Status: alert / awake / arousable, participated in evaluation Pt Amnestic to Procedure: Yes Nausea / Vomiting: adequately controlled Pain: adequately controlled Airway Patency, RR, SpO2: stable & adequate BP & HR: stable & adequate Hydration State: stable & adequate Neuraxial Anesthesia: was administered, sensory block resolved Anesthetic Complications: no major complications apparent
[2016-09-22] MEDS: SODIUM CHLORIDE 0.9% 1000ML 1,000 ML IV SCH (11:19)
[2016-09-22 13:39] VITALS: BP 144/73; PULSE 82; TEMP 36.8; O2SAT 93
== END 2016-09-22 15:10 | disposition home or self-care (01) | DRG 489 ==
LOC: ENRESERVTM → ENRESERVDT → C.ACU 09:20 → C.3E 12:38
PROVIDERS: ADMIT Orthopaedic Surgery; ATTEND Orthopaedic Surgery
PROC: 0SUW09Z Supplement Left Knee Joint, Tibial Surface with Liner, Open Approach (ICD-10-PCS; principal; 2016-09-21 11:30)
PROC: 0SPD09Z Removal of Liner from Left Knee Joint, Open Approach (ICD-10-PCS; principal; 2016-09-21 11:30)
PROC: 0KQR0ZZ Repair Left Upper Leg Muscle, Open Approach (ICD-10-PCS; principal; 2016-09-21 11:30)
DX: S76.112A Strain of left quadriceps muscle, fascia and tendon, initial encounter (principal); S76.812A Strain of other specified muscles, fascia and tendons at thigh level, left thigh, initial encounter; Y83.4 Other reconstructive surgery as the cause of abnormal reaction of the patient, or of later complication, without mention of misadventure at the time of the procedure; Y79.2 Prosthetic and other implants, materials and accessory orthopedic devices associated with adverse incidents; I10 Essential (primary) hypertension; K21.9 Gastro-esophageal reflux disease without esophagitis; E11.9 Type 2 diabetes mellitus without complications; F41.0 Panic disorder [episodic paroxysmal anxiety]; F32.9 Major depressive disorder, single episode, unspecified; M19.90 Unspecified osteoarthritis, unspecified site; Z96.653 Presence of artificial knee joint, bilateral; Z79.1 Long term (current) use of non-steroidal anti-inflammatories (NSAID); Z79.84 Long term (current) use of oral hypoglycemic drugs; Z79.891 Long term (current) use of opiate analgesic; Z79.899 Other long term (current) drug therapy

== ENCOUNTER 2020-03-30 04:47 | Observation (INO) ==
--- NOTE | 2020-03-16 15:51 | PAT Medication Instructions ---
Medication Instructions Date of Service March 16, 2020 Home Medications amlodipine [Norvasc] 5 mg PO QAM calcium carbonate-vitamin D3 [Calcium 600 + D(3)] 1 cap PO BID clonazepam 0.5 mg PO HS coQ10 (ubiquinol) 200 mg PO HS fluoxetine 60 mg PO QAM [id number]-qej-osxm-FA-lutein [Centrum Silver Women] 1 tab PO QAM [id number] [Macular Health Formula] 1 cap PO QAM olmesartan-hydrochlorothiazide [Benicar HCT] 1 tab PO QAM pioglitazone [Actos] 30 mg PO QAM potassium chloride [Klor-Con M20] 20 meq PO QAM simvastatin 20 mg PO HS STOP taking 2 weeks before surgery (or as soon as possible if surgery is within 2 weeks) coQ10 (ubiquinol) 200 mg PO HS [id number] [Macular Health Formula] 1 cap PO QAM DO NOT take the morning of surgery calcium carbonate-vitamin D3 [Calcium 600 + D(3)] 1 cap PO BID Centrum Silver Women] 1 tab PO QAM olmesartan-hydrochlorothiazide [Benicar HCT] 1 tab PO QAM pioglitazone [Actos] 30 mg PO QAM potassium chloride [Klor-Con M20] 20 meq PO QAM Take morning of surgery With a small sip of water, OTHERWISE NOTHING TO EAT OR DRINK AFTER MIDNIGHT: amlodipine [Norvasc] 5 mg PO QAM fluoxetine 60 mg PO QAM Take evening before surgery calcium carbonate-vitamin D3 [Calcium 600 + D(3)] 1 cap PO BID clonazepam 0.5 mg PO HS simvastatin 20 mg PO HS Other Notes If you have any questions please call us at [phone] or [phone] or [phone] or [phone]
--- NOTE | 2020-03-18 11:45 | Anesthesiology Consultation ---
Date of Service March 18, 2020 Assessment & Plan (1) Encounter for pre-operative examination: - Awaiting cardiology office visit scheduled 03/19 ([facility]). - Per assessment on 03/18: Travel screen- Lives in [place]. Travel to [place]/[facility] for doctor appt (DOS greater than 2 weeks since [place] travel). No known COVID-19 positive contacts or current COVID-19 related symptoms. Surgeon arranging preop COVID testing. Awaiting results. - S/P Left knee: open repair of rupture, poly exchange: 09/21/16: SAB x1 attempt + PNB at [facility] - Check BSG AM DOS - Patient requesting general anesthesia: discussed SAB vs. GA. Advised patient to discuss further AM DOS. OR aware of possible General anesthesia. Chart Review Chart Review: Patient seen in Pre Admission Testing Teaching & Discussion Pre-Anesthesia Teaching/Discussion Notes: Instructed NPO after midnight before surgery,except medications with 15 cc of water. Medication instructions provided according to the PAT guidelines. History Surgery Operation Date: 03/30/20 10:45 Proposed Procedures p Right Anterior Total Hip Arthroplasty - North Iraheta DO Height/Weight Height: 5 ft 9.5 in Weight: 91.8 kg Allergies Allergy/AdvReac Type Severity Reaction Status Date / Time hydrocodone Allergy Intermediate Hallucinati Verified 03/18/20 09:18 ons iodine Allergy Intermediate Hives Verified 03/18/20 09:18 povidone Allergy Intermediate Hives Verified 03/18/20 09:18 povidone-iodine Allergy Intermediate Hives Verified 03/18/20 09:18 adhesive tape AdvReac Mild Rash Verified 03/16/20 14:24 Medications Home Medications Medication Instructions Recorded Confirmed Last Taken amlodipine [Norvasc] 5 mg PO QAM 03/16/20 03/16/20 Unknown calcium carbonate-vitamin D3 1 cap PO BID 03/16/20 03/16/20 Unknown [Calcium 600 + D(3)] clonazepam 0.5 mg PO HS 03/16/20 03/16/20 Unknown coQ10 (ubiquinol) 200 mg PO HS 03/16/20 03/16/20 Unknown fluoxetine 60 mg PO QAM 03/16/20 03/16/20 Unknown yknijmkk-qsp-vypg-FA-lutein 1 tab PO QAM 03/16/20 03/16/20 Unknown [Centrum Silver Women] [id number]-[id number]-[id number] 1 cap PO QAM 03/16/20 03/16/20 Unknown [Macular Health Formula] olmesartan-hydrochlorothiazide 1 tab PO QAM 03/16/20 03/16/20 Unknown [Benicar HCT] pioglitazone [Actos] 30 mg PO QAM 03/16/20 03/16/20 Unknown potassium chloride [Klor-Con M20] 20 meq PO QAM 03/16/20 03/16/20 Unknown simvastatin 20 mg PO HS 03/16/20 03/16/20 Unknown paroxetine HCl 60 mg PO DAILY 03/18/20 03/18/20 Unknown Past Medical History Medical History Anxiety Diabetes mellitus, type 2 NIDDM Fragile skin GERD (gastroesophageal reflux disease) History of cardiac arrhythmia hx possible NS SVT per records Hyperlipidemia Hypertension Lymphoma marginal cell, under surveillance Macular degeneration Migraine Osteoarthritis Exercise / Class Metabolic Activity II 4-5 Yardwork/Stairs/Walk up hill Past Family History Family History Other No significant family history Past Surgical History Surgical History History of arthroscopy RT/LEFT KNEE, Left knee: open repair of rupture, poly exchange: 09/21/16: SAB x1 attempt + PNB at [facility] History of bunionectomy RT/LEFT History of cataract surgery RT/LEFT History of cholecystectomy History of colonoscopy History of esophagogastroduodenoscopy (EGD) History of Marisol fundoplication History of tonsillectomy and adenoidectomy History of tooth extraction History of total knee replacement RT/LEFT Hx of total hysterectomy Past Anesthesia History No Hx of Anesthesia Complications (except single episode PONV) and No Family Hx of Anesthesia Complications History of PONV History of PONV (single episode with remote surgery, no issue when pre- treatment/scope patch used subsequently) and Hx of Motion Sickness (mild) Social History Smoking Status: Never smoker Do You Dip or Chew Tobacco: No Hx Alcohol Use: No substance use type: does not use Review of Systems Patient denies chest pain, shortness of breath, dyspnea on exertion, fever, chills, cough, wheezing, palpitations. Physical Exam Vital Signs VITALS BP 109/68 P 58 TEMP 98.6 SP02 98%RA RESP 16 PHYSICAL Full neck and c-spine range of motion. Full TMJ range of motion. TMD 2 finger breaths Mallampati Score 3 Dentition: missing molars, + caps (lower sides) Lungs: clear throughout to auscultation Cardiac: regular rate and rhythm, I/ systolic murmur Spine: normal Carotid arteries: negative bruit Extremities: no edema Testing Laboratory Results 03/18/20 12:14 03/18/20 12:14 PT 10.9 Seconds (9.0-12.0) 03/18/20 12:14 INR 1.0 (0.9-1.1) 03/18/20 12:14 APTT 26.1 Seconds (21.0-31.0) 03/18/20 12:14 Hemoglobin A1c 5.8 % (4.5-5.6) H 03/18/20 12:14 Urine Color Yellow 03/18/20 Unknown Urine Appearance Clear (Clear) 03/18/20 Unknown Urine pH 5.0 (4.5-7.5) 03/18/20 Unknown Ur Specific [place] 1.013 (1.000-1.030) 03/18/20 Unknown Urine Protein Negative (Negative) 03/18/20 Unknown Urine Glucose (UA) Negative (Negative) 03/18/20 Unknown Urine Ketones Negative (Negative) 03/18/20 Unknown Urine Nitrite Negative (Negative) 03/18/20 Unknown Ur Leukocyte Esterase 1+ (Negative) H 03/18/20 Unknown Urine WBC (Auto) 10-30 /hpf (0-5) H 03/18/20 Unknown Urine RBC (Auto) 0-4 /hpf (0-4) 03/18/20 Unknown U Hyaline Cast (Auto) 0 /lpf (0-5) 03/18/20 Unknown U Epithel Cells (Auto) 10-20 /lpf (0-5) H 03/18/20 Unknown Urine Bacteria (Auto) 1+ (Negative) H 03/18/20 Unknown Blood Type AB Positive 03/18/20 12:14 Antibody Screen NEGATIVE 03/18/20 12:14 Vickie at surgeon's office made aware of + UA* Electrocardiogram Date: 03/18/20 SB at 55bpm. unconfirmed report. Chest X-Ray Date: 03/18/20 FINDINGS: The cardiac and mediastinal contours are normal. There is no evidence of focal pulmonary consolidation. There is no evidence of failure. No pleural effusions are visualized.[ IMPRESSION: No active disease in the chest. Echocardiogram Date: 08/03/16 EF 60%. No RWMA. Mild MR. Stress Test Date: 02/22/13 Myocardial perfusion imaging normal. No ischemia. No infarct. EKG showed no ischemia. No RWMA.
[2020-03-18 12:46] LABS: Hematocrit (blood only) 38.3 % (37-47); Hemoglobin 12.3 g/dL (12.0-16.0); Mean Corpuscular Hemoglobin 30.7 pg (25-34); Mean Corpuscular Hgb Conc 32.1 g/dL (32-36); Mean Corpuscular Volume 95.5 fL (80-100); Mean Platelet Volume 9.8 fL (7.4-10.4); Platelet Count 294 K/uL (130-400); RDW Coefficient of Variation 13.3 % (11.5-14.5); RDW Standard Deviation 46.3 fL (36.4-46.3); Red Blood Count 4.01 M/uL (4.2-5.4); White Blood Count 10.52 K/uL (4.8-10.8)
[2020-03-18 12:51] LABS: Bacteria Urine Automated 1+ (Negative); Bilirubin Urine Negative (Negative); Blood Urine Negative (Negative); Cast Urine Automated 0 /lpf (0-5); Color Urine Yellow; Glucose Urine UA Negative (Negative); Ketones Urine Negative (Negative); Leukocyte Esterase Urine 1+ (Negative); Nitrite Urine Negative (Negative); Protein Urine Negative (Negative); RBC Urine Automated 0-4 /hpf (0-4); Specific Gravity Urine 1.013 (1.000-1.030); Urobilinogen Urine Negative (Negative)
[2020-03-18 12:58] LABS: Partial Thromboplastin Ratio 0.9; Partial Thromboplastin Time 26.1 Seconds (21.0-31.0); Prothrombin Time 10.9 Seconds (9.0-12.0)
--- NOTE | 2020-03-18 13:00 | XRay Report ---
XR chest Pre-admission PA/Lat CLINICAL HISTORY: Preoperative chest COMPARISON STUDY: No previous studies for comparison. FINDINGS: The cardiac and mediastinal contours are normal. There is no evidence of focal pulmonary co nsolidation. There is no evidence of failure. No pleural effusions are visualized.[ IMPRESSION: No active disease in the chest. ACT 112: Negative or not required by law. Electronically signed by: Philipp Greer M.D. 03/18/2020 12:58 PM
[2020-03-18 13:02] LABS: BUN Creatinine Ratio 17.9 (10-20); Calcium 10.2 mg/dl (8.5-10.1); Creatinine Clr Calc Pharmacy 64.6 ml/min; Est GFR (African American) 66.6; Est GFR (Non-African American) 57.4; Potassium 4.6 mmol/L (3.5-5.1)
[2020-03-18 13:05] LABS: Estimated Average Glucose 120 mg/dl; Hemoglobin A1C 5.8 % (4.5-5.6)
[2020-03-18 13:12] LABS: Appearance Urine Clear (Clear)
[2020-03-18 14:11] LABS: ALC (manual) 6.16 K/uL (1.2-3.4); ANC (manual) 4.08 K/uL (1.4-6.5); Basophils # (manual) 0.09 K/uL (0-0.2); Basophils % (manual) 0.9 %; Lymphocytes # (manual) 3.53 K/uL (1.2-3.4); Lymphocytes % (manual) 33.6 %; Monocytes # (manual) 0.18 K/uL (0.11-0.59); Monocytes % (manual) 1.7 %; Neutrophils # (manual) 4.08 K/uL (1.4-6.5); Neutrophils % (manual) 38.8 %; Reactive Lymphocytes # (manual) 2.63 K/uL
--- NOTE | 2020-03-19 06:05 | Electrocardiogram Report ---
Test Reason : Blood Pressure : / mmHG Vent. Rate : 055 BPM Atrial Rate : 055 BPM P-R Int : 164 ms QRS Dur : 088 ms QT Int : 446 ms P-R-T Axes : 068 041 043 degrees QTc Int : 426 ms Sinus bradycardia Otherwise normal ECG When compared with ECG of 08-APR-2013 14:37, No significant change was found Confirmed by Aneudy Olson ([id number]) on 03/19/2020 6:05:16 AM Referred By: North Iraheta Confirmed By:Aneudy Olson
--- NOTE | 2020-03-29 14:33 | History & Physical Report ---
Date of Service March 30, 2020 Assessment & Plan (1) Degenerative joint disease of right hip: I have indicated the patient for right anterior total hip replacement. The risks, benefits and complications of surgery were explained to the patient which include but not limited to infection, acute blood loss, DVT/PE, injury to nerves, vessels, bone, soft tissue, arthrofibrosis, chronic pain, failure of the prosthesis, hip dislocation, leg length discrepancy, need for additional surgery, cardiac and pulmonary events and . The patient wished to proceed with surgery and informed consent was obtained at this time. We will plan for 81mg ASA BID post-operatively for DVT prophylaxis. Upon discharge the patient will be discharged home with home health services. Appropriate clearances by PCP were obtained. The patient is asymptomatic for UTI. History of Present Illness Chief Complaint: Right hip pain/djd Primary Care Provider: Arthur García The patient is a 69 year old female who presents with complaints of severe right hip pain and DJD. The patient has failed outpatient conservative treatments to this point which included NSAIDs, IA corticosteroid injection, home exercise/walking program. The patient's pain and limited function have progressed to the point where they severely hinder their activities of daily living and they no longer tolerate exercise programs. They are requesting to proceed with total hip replacement surgery. Allergies Allergy/AdvReac Type Severity Reaction Status Date / Time hydrocodone Allergy Intermediate Hallucinati Verified 03/30/20 05:31 ons iodine Allergy Intermediate Hives Verified 03/30/20 05:31 povidone Allergy Intermediate Hives Verified 03/30/20 05:31 povidone-iodine Allergy Intermediate Hives Verified 03/30/20 05:31 adhesive tape AdvReac Mild Rash Verified 03/30/20 05:31 Home Medications Home Medications Medication Instructions Recorded Confirmed Type amlodipine [Norvasc] 5 mg PO QAM 03/16/20 03/30/20 History calcium carbonate-vitamin D3 1 cap PO BID 03/16/20 03/30/20 History [Calcium 600 + D(3)] clonazepam 0.5 mg PO HS 03/16/20 03/30/20 History coQ10 (ubiquinol) 200 mg PO HS 03/16/20 03/30/20 History fluoxetine 60 mg PO QAM 03/16/20 03/30/20 History fagpazmb-rdx-gtmw-FA-lutein 1 tab PO QAM 03/16/20 03/30/20 History [Centrum Silver Women] ah-cf-iowwmm-qwjs-[id number] 1 cap PO QAM 03/16/20 03/30/20 History [Macular Health Formula] olmesartan-hydrochlorothiazide 1 tab PO QAM 03/16/20 03/30/20 History [Benicar HCT] pioglitazone [Actos] 30 mg PO QAM 03/16/20 03/30/20 History potassium chloride [Klor-Con M20] 20 meq PO QAM 03/16/20 03/30/20 History simvastatin 20 mg PO HS 03/16/20 03/30/20 History paroxetine HCl 60 mg PO DAILY 03/18/20 03/30/20 History Past Med/Surg History Medical History Anxiety Diabetes mellitus, type 2 NIDDM Fragile skin GERD (gastroesophageal reflux disease) History of cardiac arrhythmia hx possible NS SVT per records Hyperlipidemia Hypertension Lymphoma marginal cell, under surveillance Macular degeneration Migraine Osteoarthritis Surgical History History of arthroscopy RT/LEFT KNEE, Left knee: open repair of rupture, poly exchange: 09/21/16: SAB x1 attempt + PNB at [facility] History of bunionectomy RT/LEFT History of cataract surgery RT/LEFT History of cholecystectomy History of colonoscopy History of esophagogastroduodenoscopy (EGD) History of Marisol fundoplication History of tonsillectomy and adenoidectomy History of tooth extraction History of total knee replacement RT/LEFT Hx of total hysterectomy Family History Other No significant family history Social History Smoking Status: Never smoker Second Hand Exposure: No; Do You Dip or Chew Tobacco: No; Tobacco Cessation Education Requested by Patient: No Hx Alcohol Use: No Preferred Language: [place]oth[place] Bone [employer]her Required: No Beliefs That Will Affect Care: None Current Living Situation: Spouse Feels Safe at Home: Yes Safety Concerns: Feels Safe At This Time Assistive Devices: Glasses Review of Systems Review of Systems: All systems reviewed & are unremarkable except as noted in HPI & below Constitutional: as per Subjective / HPI Physical Exam Physical Exam: RLE NVSI +EHL/FHL/TA/GS SILT grossly, +2 DP pulse, compartments soft NT, limited painful ROM of the hip, antalgic gait Constitutional: WD/WN, vitals as above Eyes: PERRL, conjunctivae normal, anicteric sclerae ENMT: external ear and nose normal, oropharynx normal Neck: trachea midline, no thyromegaly Respiratory: normal respiratory effort, lungs clear to auscultation Cardiovascular: RRR, no murmur, no edema Gastrointestinal (Abdomen): normal bowel sounds, soft, nontender, no hepatosplenomegaly Musculoskeletal: no cyanosis or clubbing, extremities motor strength 5/5 Skin: no rashes, warm and dry Neurologic: patellar DTR's 2+ bilat, sensation intact Psychiatric: A+Ox3, euthymic affect Lymphatic: no cervical or axillary lymphadenopathy Results & Data Results & Data ([facility]) Diagnostic Findings Multiple views of the hip demonstrates severe DJD with complete loss of the joint space. +osteophytes, +sclerosis, +subchondral cysts. Pre Admission Testing Addendum Laboratory Results 03/18/20 12:14 03/18/20 12:14 PT 10.9 Seconds (9.0-12.0) 03/18/20 12:14 INR 1.0 (0.9-1.1) 03/18/20 12:14 APTT 26.1 Seconds (21.0-31.0) 03/18/20 12:14 Hemoglobin A1c 5.8 % (4.5-5.6) H 03/18/20 12:14 Urine Color Yellow 03/18/20 Unknown Urine Appearance Clear (Clear) 03/18/20 Unknown Urine pH 5.0 (4.5-7.5) 03/18/20 Unknown Ur Specific [place] 1.013 (1.000-1.030) 03/18/20 Unknown Urine Protein Negative (Negative) 03/18/20 Unknown Urine Glucose (UA) Negative (Negative) 03/18/20 Unknown Urine Ketones Negative (Negative) 03/18/20 Unknown Urine Nitrite Negative (Negative) 03/18/20 Unknown Ur Leukocyte Esterase 1+ (Negative) H 03/18/20 Unknown Urine WBC (Auto) 10-30 /hpf (0-5) H 03/18/20 Unknown Urine RBC (Auto) 0-4 /hpf (0-4) 03/18/20 Unknown U Hyaline Cast (Auto) 0 /lpf (0-5) 03/18/20 Unknown U Epithel Cells (Auto) 10-20 /lpf (0-5) H 03/18/20 Unknown Urine Bacteria (Auto) 1+ (Negative) H 03/18/20 Unknown Blood Type AB Positive 03/18/20 12:14 Antibody Screen NEGATIVE 03/18/20 12:14 03/18/20 Unknown Urine Culture - Final Urine,Clean Catch Escherichia coli
[2020-03-30] MEDS ORDERED: TRANEXAMIC ACID 1,000 MG **IV Intra-op IV SCH (06:00)
[2020-03-30] MEDS ORDERED: ceFAZolin 2000MG 2,000 MG/15 ML SYR IV SCH (06:00)
[2020-03-30] MEDS ORDERED: TRANEXAMIC ACID 1,000 MG **IV Pre-op IV SCH (06:00)
[2020-03-30] MEDS ORDERED: CeleBREX 200 MG CAP PO SCH (06:00)
[2020-03-30] MEDS ORDERED: ROPIVACAINE 0.5% HCL/PF 150 MG, BUPIVACAINE 0.5% MPF 30 ML, EPINEPHrine 30MG/30ML (OR U... INFIL SCH (06:00)
[2020-03-30] MEDS ORDERED: ACETAMINOPHEN 500 MG TAB PO SCH (06:00)
[2020-03-30] MEDS ORDERED: FAMOTIDINE 20 MG TAB PO SCH (06:00)
[2020-03-30] MEDS ORDERED: LR 500ML BOLUS, THEN 15ML/HR IV SCH (06:00)
[2020-03-30] MEDS ORDERED: dexAMETHasone 4 MG TAB PO SCH (06:00)
[2020-03-30] MEDS ORDERED: GABAPENTIN 300 MG CAP PO SCH (06:00)
[2020-03-30] MEDS ORDERED: BUPIVACAINE 0.5 % 5 MG/1 ML PF 10ML VIAL ONE (06:30)
[2020-03-30] MEDS ORDERED: PROPOFOL IV EMULSION 10 MG/ML 20 ML VIAL IV ONE ×3 (06:36→08:28)
[2020-03-30] MEDS ORDERED: ONDANSETRON INJ 2 MG/ML 2 ML VIAL ONE (06:36)
[2020-03-30] MEDS ORDERED: fentaNYL citrate 100 MCG/2 ML VIAL ONE (06:36)
[2020-03-30] MEDS ORDERED: MIDAZOLAM HCL 1 MG/ML 2ML VIAL ONE (06:36)
[2020-03-30] MEDS ORDERED: LIDOCAINE HCL 2% 2 ML VIAL/AMP(20MG/ML) INFIL ONE (06:36)
[2020-03-30] MEDS ORDERED: BACITRACIN INJ 50,000 UNIT VIAL ONE (06:41)
[2020-03-30] MEDS ORDERED: ORTHO JOINT ANESTHETIC ONE (06:41)
--- NOTE | 2020-03-30 06:41 | History & Physical Bridge Note ---
Date of Service March 30, 2020 History & Physical Bridge Note I have examined the patient, reviewed the History & Physical and in the interval since the performance of the History & Physical I have noted the following changes of clinical significance: no changes noted
[2020-03-30] MEDS ORDERED: ePHEDrine sulfate 50 MG/ML AMP IV PRN (07:20)
[2020-03-30] MEDS ORDERED: ATROPINE SULFATE 0.1 MG/ML 10ML SYR IV PRN (07:20)
[2020-03-30] MEDS ORDERED: ONDANSETRON INJ 2 MG/ML 2 ML VIAL IV PRN ×2 (07:20→10:55)
--- NOTE | 2020-03-30 09:04 | Post Operative Brief Note ---
Immediate Post Op Note v1 Date of Surgery March 30, 2020 Pre & Post Diagnosis Operation Date: 03/30/20 07:00 Pre-Op Diagnosis: Unilateral Primary Osteoarthritis, Right Hip Post-Op Diagnosis: Unilateral Primary Osteoarthritis, Right Hip I identified the patient and participated in the time-out.: Yes Procedure Operation Date: 03/30/20 07:00 Actual Procedures p Right Anterior Total Hip Arthroplasty(Right) - North Iraheta DO Surgeon North Iraheta DO Public Relations Professional Juan Ayala Estimated Blood Loss 175 Findings Consistent with Post-Op Diagnosis Fluids 1000 cc LR Specimens femoral head Anesthesia Type Spinal MAC Complications none Disposition Disposition: Recovery Room Overlapping Procedure I was present for: the critical portions of procedure. I was immediately available: during the entire case. Back up surgeon: was not required during procedure.
--- NOTE | 2020-03-30 09:07 | Operative Report ---
Post Operative Report Pre & Post Diagnosis Operation Date: 03/30/20 07:00 Pre-Op Diagnosis: Unilateral Primary Osteoarthritis, Right Hip Post-Op Diagnosis: Unilateral Primary Osteoarthritis, Right Hip I identified the patient and participated in the time-out.: Yes Procedure Operation Date: 03/30/20 07:00 Actual Procedures p Right Anterior Total Hip Arthroplasty(Right) - North Iraheta DO Surgeon [place] Iraheta DO Correctional Corporal Juan Ayala Estimated Blood Loss 175 Findings Consistent with Post-Op Diagnosis Specimens femoral head Anesthesia Type Spinal MAC Complications none Disposition Disposition: Recovery Room Indications The patient is a 69-year-old female who presents with severe progressive right hip DJD who has failed outpatient conservative treatments. I indicated the patient for a anterior total hip replacement and the risks and benefits were explained in detail which include but not limited to infection, bleeding, blood clot, damage to surrounding bone, nerves, vessels, soft tissue, hip dislocation, failure of the prosthesis, leg length discrepancy, need for additional surgery and . The patient agreed to proceed with replacement of the hip and informed consent was obtained. Appropriate clearances were obtained. Description of Procedure COMPONENTS USED: [employer] hip system: Acetabulum size 58, femur size 13 standard offset, femoral head 36-3, liner 58x36, acetabular screw 25 mm x 2. DESCRIPTION OF PROCEDURE: Following satisfactory spinal anesthesia, the patient was placed supine on the OR table. The left leg was placed in the well leg walton and the right leg in the traction device. The right leg was prepared with ChloraPrep and draped sterilely. A surgical timeout was performed, patient identified and site khadar verified. Appropriate antibiotics were given. A standard anterior approach in the interval between the sartorius and tensor muscles was performed. Dissection was carried down through subcutaneous tissues. Electrocautery was utilized for hemostasis. Circumflex femoral vessels were identified, tied and ligated. The anterior capsular fat pad was removed and the capsulotomy was performed revealing the arthritic femoral neck and head. A femoral neck cut was made with reciprocating saw and the bone fragments removed. The acetabular self-retraining retractor was placed. Acetabular reaming was completed under fluoroscopic guidance, a 58 shell was impacted into an anatomic position and secured with a dome screw. Local anesthetic was placed and following irrigation, the polyethylene liner was placed. The femur was placed into position of external rotation, extension and adduction. Femoral canal was prepared up to the size 13 standard offset. Trial reduction with a 36-3 neck length head showed good soft tissue tension, leg lengths restored, and good fit and fill of the proximal canal using fluoroscopic landmarks. The hip was dislocated. The trial component was removed. The final implant was placed. The hip was irrigated with sterile saline solution and reduced. The hip was once more irrigated with copious sterile saline solution with bacitracin. Kenyatta-incisional soft tissue was injected utilizing [place] [employer] which includes a combination of Ropivicaine 0.5% 150mg, Bupivicaine 0.5%/Epinephrine 1:200,000 30ml, Toradol 30mg, Dexamethasone 4mg, Ketamine 10mg, Clonidine 100mcg and NSS 30ml solution. The capsule was then closed with 1-0 Vicryl interrupted figure of eight sutures. The fascia was closed with a running suture of #1 Vicryl, the subcutaneous tissues with 2-0 Vicryl and the skin was closed with mikey. A sterile dry dressing was applied which included Xeroform, 4 x 4's, ABDs and paper tape. The patient tolerated the procedure well and was transported to PACU in stable condition. Due to the complex nature of the procedure, the entire surgery was performed with the operational assistance of Juan Ayala PA-C. The certified registered dental assistant, under direct supervision, was involved in the actual performance of all aspects of the surgical procedure including patient positioning, hemostasis, tissue retraction, instrument management and wound closure. I attest to the content of the Intraoperative Record and any orders documented therein. Any exceptions are noted below.
[2020-03-30] MEDS: fentaNYL citrate 100 MCG/2 ML VIAL IV PRN ×2 (09:25→09:31)
--- NOTE | 2020-03-30 09:25 | Fluoroscopy Report ---
FL hip RT 1V CLINICAL HISTORY: RT ANTERIOR TOTAL. Right hip replacement. COMPARISON STUDY: None. FLUOROSCOPY TIME: 45 seconds. FINDINGS: 2 fluoroscopic spot images of the right hip demonstrate a right total hip arthroplasty. The hardware is intact. No fracture or dislocation. IMPRESSION: Fluoroscopy provided for right total hip arthroplasty. ACT 112: Negative or not required by law. Electronically signed by: Cali Clement M.D. 03/30/2020 9:24 AM
--- NOTE | 2020-03-30 09:48 | XRay Report ---
CROSSTABLE LATERAL RIGHT HIP History: Right total hip arthroplasty. Degenerative arthritis. Postop. FINDINGS: The patient is status post a right total hip arthroplasty. The hardware is intact. No fract ure or dislocation. Skin mikey are in place. IMPRESSION: Right total hip arthroplasty. No evidence for hardware complication ACT 112: Negative or not required by law. Electronically signed by: Cali Clement M.D. 03/30/2020 9:47 AM
--- NOTE | 2020-03-30 10:25 | Anesthesiology Progress Note ---
Date of Service March 30, 2020 Anesthesia Post Procedure Vital Signs Vital Signs: Temp Pulse Pulse Resp BP Pulse Ox 03/30/20 10:15 56 L 14 121/59 L 97 03/30/20 10:05 62 14 115/63 98 03/30/20 09:55 66 15 117/61 98 03/30/20 09:45 65 13 127/65 98 03/30/20 09:35 71 18 123/67 88 L 03/30/20 09:25 62 19 118/66 97 03/30/20 09:16 36.3 C L 72 18 114/66 98 03/30/20 05:38 36.9 C 59 L 18 143/78 H 98 Pain Intensity Right Hip: Pain Intensity: 3 Transfer of Care Handoff Completed per policy Notes Mental Status: alert / awake / arousable Patient Amnestic to Procedure: Yes Nausea / Vomiting: adequately controlled Pain: adequately controlled Airway Patency, RR, SpO2: stable & adequate BP & HR: stable & adequate Hydration State: stable & adequate Neuraxial Anesthesia: was administered and sensory block is resolving Anesthetic Complications: no major complications apparent and Pt Satisfied with anesthetic care
[2020-03-30] MEDS ORDERED: METOCLOPRAMIDE HCL INJ 5 MG/ML 2 ML VIAL IV PRN (10:55)
[2020-03-30] MEDS ORDERED: bisacodyL 10 MG SUPP PR PRN (10:55)
[2020-03-30] MEDS ORDERED: oxyCODONE HCL IR 5 MG TAB (IMMEDIATE RELEASE) PO PRN (10:55)
[2020-03-30] MEDS ORDERED: NALOXONE HCL 0.4 MG/1 ML VIAL/CARP IV PRN (10:55)
[2020-03-30] MEDS ORDERED: HYDROmorphone INJ 0.5 MG/0.5 ML SYR IV PRN (10:55)
[2020-03-30] MEDS ORDERED: MAGNESIUM HYDROXIDE SUSP 30 ML UDC PO PRN (10:55)
[2020-03-30] MEDS ORDERED: PHARMACY GLYCEMIC MGMT CONSULT PRN (11:27)
[2020-03-30] MEDS ORDERED: NovoLIN-N (NPH) PER UNIT CHARGE SQ STA (11:32)
[2020-03-30] MEDS: SODIUM CHLORIDE 0.9% 1000ML 1,000 ML IV SCH ×2 (11:43→21:38)
[2020-03-30] MEDS ORDERED: GLUCOSE 40% GEL 15 GM TUBE PO PRN (11:45)
[2020-03-30] MEDS ORDERED: GLUCOSE 10 TABS/TUBE PO PRN (11:45)
[2020-03-30] MEDS ORDERED: DEXTROSE 50% 50 ML SYRINGE IV PRN (11:45)
[2020-03-30] MEDS ORDERED: GLUCAGON FOR INJ 1 MG VIAL IM PRN (11:45)
[2020-03-30] MEDS ORDERED: CARBOHYDRATES FOR HYPOGLYCEMIA PO PRN (11:45)
--- NOTE | 2020-03-30 11:46 | Pharmacy Report ---
Glycemic Control Consultation - Date of Service March 30, 2020 - Scope Scope: Glycemic Pharmacist consulted for glycemic control and to write orders per [facility] inpatient glycemic control protocol. - Objective Weight: 92.2 kg Accuchecks BSG (last 24hrs): 03/30/20 03/30/20 05:22 09:20 POC Glucose 120 H 180 H HbA1c: Hemoglobin A1c 5.8 % (4.5-5.6) H 03/18/20 12:14 - Recent Pertinent Medications Outpatient Anti-diabetic Regimen: * Pioglitazone 30 mg PO qAM * A1c = 5.8% (03/18/2020) Risk Factors for Insulin Resistance: * Steroids: * Dexamethasone 8 mg PO pre-op x 1 * Ortho Joint Mix * Infection: * Ancef x 2 doses post-op * IVF: * NSS @ 100 cc/hr * Recent Surgery: * POD #0 s/p R JUANJO * Diet: * T2DM - Assessment & Plan Assessment & Plan: ASSESSMENT: * 69 yo F admitted s/p Right Anterior Total Hip Arthroplasty. Pharmacy has been consulted post-operatively for inpatient glycemic management. Patient is maintained on oral anti-diabetic medications as an outpatient. Oral agents are not recommended for inpatient use d/t drug interactions, changing PO intake, and difficulty titrating for acute hyper/hypoglycemia. ADA recommends re- initiating outpatient oral agents 1-2 days prior to discharge if/when appropriate if they were held on admission. * Pre-operative BSG was 120 mg/dL and post-operative BSG was 180 mg/dL. * Give pre-operative steroid administration, expecting patient's post- prandial BSGs to be elevated for the next 24 or so hours. Therefore, will administer a one time dose of 25 units NPH (~ 0.25 units/kg). * Will initiated weight-based stress of 2-3 Novolog with each meal and at bedtime. * This dosing regimen is aggressive for an insulin naive patient. I expect insulin requirements to decrease over the next 24 hours as steroids begin to wear off. PLAN FOR INPATIENT GLYCEMIC CONTROL: * Holding outpatient oral diabetes medications * Basal insulin * NPH 25 units SQ x 1 * Bolus insulin * NovoLog per scale ACHS or Q6hrs while NPO * Goal Range: Low 110 mg/dL - High 140 mg/dL * Correction Factor: 20 mg/dL/unit * Nutritional / Prandial insulin per carb ratio of 1 unit per 7 grams CHO consumed DISCHARGE RECOMMENDATIONS: * HbA1c = 5.8%. Goal HbA1c for this patient is less than 7.0% based on age and comorbidities. This demonstrates excellent outpatient control of T2DM. No changes needed to home regimen. May even consider discussion with PCP regarding the need the Actos as an outpatient given current HbA1c. Thank you.
[2020-03-30] MEDS: DOCUSATE SODIUM 100 MG CAP PO SCH ×2 (12:44→21:21)
[2020-03-30] MEDS: FLUoxetine HCL 20 MG CAP PO SCH (12:45)
[2020-03-30] MEDS: MULTIVITAMIN TAB PO SCH (12:45)
[2020-03-30] MEDS: hydroCHLOROthiazide 25 MG TAB PO SCH (12:45)
[2020-03-30] MEDS: POTASSIUM CHLORIDE 20 MEQ TABCR PO SCH (12:45)
[2020-03-30] MEDS: OLMESARTAN MEDOXOMIL 40 MG TAB PO SCH (12:46)
[2020-03-30] MEDS: KETOROLAC TROMETHAMINE 15 MG/ML VIAL IV SCH ×3 (12:47→23:50)
[2020-03-30] MEDS: INSULIN ASPART 100 UNITS/ML 3 ML PEN SC SCH ×3 (12:59→21:22)
[2020-03-30] MEDS: ACETAMINOPHEN 500 MG TAB PO SCH ×2 (13:55→21:20)
[2020-03-30] MEDS: ceFAZolin 2000MG 2,000 MG/15 ML SYR IV SCH ×2 (14:25→21:29)
--- NOTE | 2020-03-30 15:00 | Orthopedic Progress Note ---
Date of Service March 30, 2020 Assessment & Plan (1) Degenerative joint disease of right hip: Status post right anterior total hip arthroplasty -Ancef x24 -DVT prophylaxis: SCDs, teds, 81 mg ASA twice daily -Weight-bear as tolerates right lower extremity -PT/OT -Postoperative x-ray demonstrates a well aligned well fixed prosthesis without evidence of fracture or dislocation. -A.m. labs -DC planning Admission and Anticipated Discharge Date Admission Date: March 30, 2020 Subjective Post Operative Progress Note Patient seen sitting up in bed, comfortable, denies complaints, pain well controlled, no acute issues. Review of Systems Review of Systems: All systems reviewed & are unremarkable except as noted in HPI & below Constitutional: as per Subjective / HPI Physical Exam Physical Exam: RLE NVSI +EHL/FHL/TA/GS SILT grossly, +2 DP pulse, compartments soft NT, dressing cdi. Constitutional: WD/WN, vitals as above Results & Data ([facility]) Vital Signs (Past 12 Hours) Vital Signs Temp Pulse Pulse Pulse Resp BP Pulse Ox 03/30/20 13:47 36.8 C 65 18 100/63 96 03/30/20 12:45 60 16 122/77 97 03/30/20 11:44 70 16 104/63 100 03/30/20 11:10 66 16 113/72 100 03/30/20 10:50 36.4 C L 64 16 122/75 94 03/30/20 10:25 36.5 C 54 L 15 115/64 97 03/30/20 10:15 56 L 14 121/59 L 97 03/30/20 10:05 62 14 115/63 98 03/30/20 09:55 66 15 117/61 98 03/30/20 09:45 65 13 127/65 98 03/30/20 09:35 71 18 123/67 88 L 03/30/20 09:25 62 19 118/66 97 03/30/20 09:16 36.3 C L 72 18 114/66 98 03/30/20 05:38 36.9 C 59 L 18 143/78 H 98
[2020-03-30] MEDS ORDERED: clonazePAM 0.5 MG TAB PO SCH (21:00)
[2020-03-30] MEDS ORDERED: SENNA 8.6 MG TAB PO SCH (21:00)
[2020-03-30] MEDS ORDERED: SIMVASTATIN 20 MG TAB PO SCH (21:00)
[2020-03-31] MEDS: ACETAMINOPHEN 500 MG TAB PO SCH ×2 (06:08→13:51)
[2020-03-31] MEDS: KETOROLAC TROMETHAMINE 15 MG/ML VIAL IV SCH ×2 (06:08→11:04)
[2020-03-31 06:25] LABS: Basophils # (auto) 0.01 K/uL (0-0.2); Basophils % (auto) 0.1 %; Hematocrit (blood only) 31.5 % (37-47); Hemoglobin 10.1 g/dL (12.0-16.0); Immature Granulocytes # (auto) 0.02 K/uL (0.00-0.02); Immature Granulocytes % (auto) 0.1 %; Lymphocytes # (auto) 3.36 K/uL (1.2-3.4); Lymphocytes % (auto) 24.4 %; Mean Corpuscular Hemoglobin 30.6 pg (25-34); Mean Corpuscular Hgb Conc 32.1 g/dL (32-36); Mean Corpuscular Volume 95.5 fL (80-100); Mean Platelet Volume 10.1 fL (7.4-10.4); Monocytes # (auto) 1.01 K/uL (0.11-0.59); Monocytes % (auto) 7.3 %; Neutrophils # (auto) 9.35 K/uL (1.4-6.5); Neutrophils % (auto) 68.1 %; Platelet Count 193 K/uL (130-400); RDW Coefficient of Variation 12.8 % (11.5-14.5); RDW Standard Deviation 44.7 fL (36.4-46.3); White Blood Count 13.75 K/uL (4.8-10.8)
[2020-03-31 06:55] LABS: BUN Creatinine Ratio 16.9 (10-20); Calcium 9.4 mg/dl (8.5-10.1); Creatinine Clr Calc Pharmacy 63.6 ml/min; Est GFR (African American) 65.8; Est GFR (Non-African American) 56.8; Potassium 4.1 mmol/L (3.5-5.1)
--- NOTE | 2020-03-31 08:41 | Pharmacy Report ---
Pharmacy Glycemic Short Note 2 - Date of Service March 31, 2020 - Glycemic Short BSG Results (Last 24 hours): 03/30/20 03/30/20 03/30/20 09:20 11:54 17:20 Glucose POC Glucose 180 H 147 H 133 H 03/30/20 03/31/20 03/31/20 19:40 05:55 08:02 Glucose 134 H POC Glucose 169 H 147 H OUTPATIENT ANTIDIABETIC REGIMEN: * Pioglitazone 30 mg PO qAM * A1c = 5.8% (03/18/2020) ASSESSMENT: * PK is now POD #1 s/p right total hip arthroplasty * Received intraoperative dexamethasone 8 mg PO x 1 + intra-articular ortho mix (containing dexamethasone) * - covered with 25 units of NPH (approximately 0.3 unit/kg) * BSGs well-controlled postoperatively (147, 133, and 169 mg/dL) * Fasting BSG of 147 mg/dL this morning * No ongoing steroids ordered - will hold off on basal insulin given excellent A1c and will loosen Novolog parameters given POD #1 PLAN FOR INPATIENT GLYCEMIC CONTROL: * Hold outpatient oral diabetes medications * Basal insulin * Hold * Bolus insulin * NovoLog per scale ACHS or Q6hrs while NPO * Goal Range: Low 110 mg/dL - High 140 mg/dL * Correction Factor: 25 mg/dL/unit * Nutritional / Prandial insulin per carb ratio of 1 unit per 8 grams CHO consumed PLAN FOR DISCHARGE: * See initial note on 03/30/20 - no change to outpatient regimen
[2020-03-31] MEDS: MULTIVITAMIN TAB PO SCH (08:52)
[2020-03-31] MEDS: DOCUSATE SODIUM 100 MG CAP PO SCH (08:52)
[2020-03-31] MEDS: POTASSIUM CHLORIDE 20 MEQ TABCR PO SCH (08:52)
[2020-03-31] MEDS: FLUoxetine HCL 20 MG CAP PO SCH (08:52)
[2020-03-31] MEDS: OLMESARTAN MEDOXOMIL 40 MG TAB PO SCH (08:52)
[2020-03-31] MEDS: INSULIN ASPART 100 UNITS/ML 3 ML PEN SC SCH ×2 (08:56→12:55)
[2020-03-31] MEDS ORDERED: amLODIPine BESYLATE 5 MG TAB PO SCH (09:00)
[2020-03-31] MEDS ORDERED: PARoxetine HCL 20 MG TAB PO SCH (09:00)
[2020-03-31] MEDS ORDERED: ASPIRIN 81 MG ECTAB PO SCH (09:00)
[2020-03-31] MEDS: hydroCHLOROthiazide 25 MG TAB PO SCH (09:12)
--- NOTE | 2020-03-31 11:53 | Orthopedic Progress Note ---
Date of Service March 31, 2020 Assessment & Plan (1) Degenerative joint disease of right hip: Status post right anterior total hip arthroplasty POD#1 -Ancef x24 -DVT prophylaxis: SCDs, teds, 81 mg ASA twice daily -Weight-bear as tolerates right lower extremity -PT/OT -Postoperative x-ray demonstrates a well aligned well fixed prosthesis without evidence of fracture or dislocation. -A.m. labs - as above, hgb 10.1 -DC planning - home with Admission and Anticipated Discharge Date Admission Date: March 30, 2020 Subjective Post Operative Progress Note Patient seen sitting up in bed, comfortable, denies complaints, pain well controlled, no acute issues. Denies F/C/N/V/SOB/CP. Review of Systems Review of Systems: All systems reviewed & are unremarkable except as noted in HPI & below Constitutional: as per Subjective / HPI Physical Exam Physical Exam: RLE NVSI +EHL/FHL/TA/GS SILT grossly, +2 DP pulse, compartments soft NT, dressing cdi. Constitutional: WD/WN, vitals as above Results & Data ([facility]) Vital Signs (Past 12 Hours) Vital Signs Temp Pulse Resp BP Pulse Ox 03/31/20 07:38 36.9 C 57 L 16 128/70 98 03/31/20 03:00 36.5 C 62 16 134/72 97 Laboratory Results 03/31/20 03/31/20 03/31/20 Range/Units 08:02 05:55 05:55 WBC 13.75 H (4.8-10.8) K/uL RBC 3.30 L (4.2-5.4) M/uL Hgb 10.1 L (12.0-16.0) g/dL Hct 31.5 L (37-47) % MCV 95.5 (80-100) fL MCH 30.6 (25-34) pg MCHC 32.1 (32-36) g/dL RDW Std Deviation 44.7 (36.4-46.3) fL RDW Coeff of Yuliana 12.8 (11.5-14.5) % Plt Count 193 (130-400) K/uL MPV 10.1 (7.4-10.4) fL Immature Gran % (Auto) 0.1 % Neut % (Auto) 68.1 % Lymph % (Auto) 24.4 % [place] % (Auto) 7.3 % Eos % (Auto) 0.0 % Baso % (Auto) 0.1 % Neut # (Auto) 9.35 H (1.4-6.5) K/uL Lymph # (Auto) 3.36 (1.2-3.4) K/uL [place] # (Auto) 1.01 H (0.11-0.59) K/uL Eos # (Auto) 0.00 (0-0.5) K/uL Baso # (Auto) 0.01 (0-0.2) K/uL Immature Gran # (Auto) 0.02 (0.00-0.02) K/uL Sodium 140 (136-145) mmol/L Potassium 4.1 (3.5-5.1) mmol/L Chloride 109 H (98-107) mmol/L Carbon Dioxide 26 (21-32) mmol/L Anion Gap 5.0 (3-11) BUN 17 (7-18) mg/dl Creatinine 1.01 (0.6-1.2) mg/dl Est Cr Clr Drug Dosing 63.6 ml/min Est GFR ( Amer) 65.8 Est GFR (Non-Af Amer) 56.8 BUN/Creatinine Ratio 16.9 (10-20) Glucose 134 H (70-99) mg/dl POC Glucose 147 H (70-99) mg/dl Calcium 9.4 (8.5-10.1) mg/dl Hepatitis C Ab Screen (Neg) 03/31/20 03/30/20 03/30/20 Range/Units 05:55 19:40 17:20 WBC (4.8-10.8) K/uL RBC (4.2-5.4) M/uL Hgb (12.0-16.0) g/dL Hct (37-47) % MCV (80-100) fL MCH (25-34) pg MCHC (32-36) g/dL RDW Std Deviation (36.4-46.3) fL RDW Coeff of Yuliana (11.5-14.5) % Plt Count (130-400) K/uL MPV (7.4-10.4) fL Immature Gran % (Auto) % Neut % (Auto) % Lymph % (Auto) % [place] % (Auto) % Eos % (Auto) % Baso % (Auto) % Neut # (Auto) (1.4-6.5) K/uL Lymph # (Auto) (1.2-3.4) K/uL [place] # (Auto) (0.11-0.59) K/uL Eos # (Auto) (0-0.5) K/uL Baso # (Auto) (0-0.2) K/uL Immature Gran # (Auto) (0.00-0.02) K/uL Sodium (136-145) mmol/L Potassium (3.5-5.1) mmol/L Chloride (98-107) mmol/L Carbon Dioxide (21-32) mmol/L Anion Gap (3-11) BUN (7-18) mg/dl Creatinine (0.6-1.2) mg/dl Est Cr Clr Drug Dosing ml/min Est GFR ( Amer) Est GFR (Non-Af Amer) BUN/Creatinine Ratio (10-20) Glucose (70-99) mg/dl POC Glucose 169 H 133 H (70-99) mg/dl Calcium (8.5-10.1) mg/dl Hepatitis C Ab Screen Neg (Neg) 03/30/20 Range/Units 11:54 WBC (4.8-10.8) K/uL RBC (4.2-5.4) M/uL Hgb (12.0-16.0) g/dL Hct (37-47) % MCV (80-100) fL MCH (25-34) pg MCHC (32-36) g/dL RDW Std Deviation (36.4-46.3) fL RDW Coeff of Yuliana (11.5-14.5) % Plt Count (130-400) K/uL MPV (7.4-10.4) fL Immature Gran % (Auto) % Neut % (Auto) % Lymph % (Auto) % [place] % (Auto) % Eos % (Auto) % Baso % (Auto) % Neut # (Auto) (1.4-6.5) K/uL Lymph # (Auto) (1.2-3.4) K/uL [place] # (Auto) (0.11-0.59) K/uL Eos # (Auto) (0-0.5) K/uL Baso # (Auto) (0-0.2) K/uL Immature Gran # (Auto) (0.00-0.02) K/uL Sodium (136-145) mmol/L Potassium (3.5-5.1) mmol/L Chloride (98-107) mmol/L Carbon Dioxide (21-32) mmol/L Anion Gap (3-11) BUN (7-18) mg/dl Creatinine (0.6-1.2) mg/dl Est Cr Clr Drug Dosing ml/min Est GFR ( Amer) Est GFR (Non-Af Amer) BUN/Creatinine Ratio (10-20) Glucose (70-99) mg/dl POC Glucose 147 H (70-99) mg/dl Calcium (8.5-10.1) mg/dl Hepatitis C Ab Screen (Neg)
--- NOTE | 2020-03-31 21:00 | Discharge Summary ---
Date of Service March 31, 2020 Admission HPI Per Admitting Provider The patient is a 69 year old female who presents with complaints of severe right hip pain and DJD. The patient has failed outpatient conservative treatments to this point which included NSAIDs, IA corticosteroid injection, home exercise/walking program. The patient's pain and limited function have progressed to the point where they severely hinder their activities of daily living and they no longer tolerate exercise programs. They are requesting to proceed with total hip replacement surgery. Principal Diagnosis Right anterior total hip replacement -Right hip DJD Discharge Exam RLE NVSI +EHL/FHL/TA/GS SILT grossly, +2 DP pulse, compartments soft NT, dressing cdi. Constitutional WD/WN, vitals as above Discharge Data Allergies Allergy/AdvReac Type Severity Reaction Status Date / Time hydrocodone Allergy Intermediate Hallucinati Verified 03/30/20 05:31 ons iodine Allergy Intermediate Hives Verified 03/30/20 05:31 povidone Allergy Intermediate Hives Verified 03/30/20 05:31 povidone-iodine Allergy Intermediate Hives Verified 03/30/20 05:31 adhesive tape AdvReac Mild Rash Verified 03/30/20 05:31 Consultations 03/31/20 08:00 Consult Case Management - Discharge Planning Routine Procedures Performed Operation Date: 03/30/20 07:00 Actual Procedures p Right Anterior Total Hip Arthroplasty(Right) - [place] DO Ordered Studies 03/30/20 07:00 FL fluoroscopy <1hr Routine FL hip RT 1V Routine Hospital Course (1) Degenerative joint disease of right hip: The patient is a 69 -year-old female who presents with long standing history of severe right hip DJD and failed outpatient conservative treatments. The patient's symptoms have progressed to the point where it has been difficult to perform even normal activities of daily living. I indicated the patient for a right anterior total hip arthroplasty, the risks, benefits and complications of the procedure include but not limited to infection, bleeding, damage to bone, nerves, vessels, surrounding soft tissue, may develop blood clots, loss of function, leg length discrepancy, dislocation, failure of the components, loosening of the components, the need for additional surgery and . The patient wished to proceed with surgery at this time and informed consent was obtained. Hospital Course: On 03/30/20 the patient was taken to the operating room, adequate anesthesia administered and underwent a right anterior total hip arthroplasty. The patient tolerated the procedure well and was taken to the PACU in stable condition. Post-operatively the patient was started on a DVT ppx medication and given appropriate IV antibiotics. Consults were placed to physical therapy, occupational therapy and case management. On POD#1, the patient did well overnight and their pain was well controlled. Labs were drawn and the Hgb was 10.1. The patient progressed well with PT. Dressings were changed at this time and the incision was clean, dry and intact. The patients hospital stay was relatively uneventful and they were deemed stable by the orthopedic team and consultants to be discharged home with HH on 03/31/20. Discharge Instructions: Upon discharge the patient may weight bear as tolerates through their operative extremity. They were instructed to keep the incision clean and dry at all time s. The patient may shower but should not submerge the incision, avoid bathing, pools and hot tubes. The patient was given a script for pain medication and should take as instructed. The patient was given a script for DVT ppx 81mg ASA BID and should take as directed. The patient was instructed to not drive or travel for long distances until cleared to do so. If the patient develops any symptoms of fevers, chills, nausea, vomiting, increased redness, swelling, pain or drainage from the surgical site, they should notify the office and/or proceed to the nearest emergency room. The patient should follow up in 10-14 days after surgery for their routine post-operative follow-up appointment and should call the office to confirm the date and time. Status post right anterior total hip arthroplasty POD#1 -Ancef x24 -DVT prophylaxis: SCDs, teds, 81 mg ASA twice daily -Weight-bear as tolerates right lower extremity -PT/OT -Postoperative x-ray demonstrates a well aligned well fixed prosthesis without evidence of fracture or dislocation. -A.m. labs - as above, hgb 10.1 -DC planning - home with Total Time Total Time Spent Total Time Spent (In Minutes): 30 Discharge Plan Discharge Items Patient Disposition: Home - Home Health Services Reason For Visit: Unilateral Primary Osteoarthritis, Right Hip Discharge Diagnosis: Right total hip replacement -Right hip DJD Condition on Discharge: Good Activity: Per Instructions section Lifting: Wait until after follow-up appointment Bathing: Keep incision dry Bathing Comment: No bathing, pools or hot tubs Sexual Activity: Wait until after follow-up appointment Exercise/Sports: Wait until after follow-up appointment Driving/Machine Use: No driving Weightbearing: Full weightbearing Non-emergency contact: Primary Care Provider and Surgeon Call non-emergency contact if: you have any medication questions, your symptoms worsen, your pain is not controlled, your pain is worsening, your pain is unusual for you, your pain is concerning for you, you have a fever, your temperature is above 101, your wound has increased redness, your wound has increased drainage and your wound pain has increased Follow-up/Referrals: Arthur García DO [Primary Care Provider] - Diet: Carb Consistent or DM2 Addtl Attending Provider Instructions: ACTIVITY RECOMMENDATIONS: SELF CARE INSTRUCTIONS AFTER TOTAL HIP REPLACEMENT : Direct Anterior Approach Until the incision and soft tissues around your hip have healed, there is a possibility that the hip prosthesis could dislocate. A. Hip flexion ( Up & Down out of chair or steps ) may be difficult. This is normal. B. Numbness in front of the thigh is also normal for a few weeks. C. Use hand rails when walking on stairs. D. Wear low heeled shoes with non-slip soles. E. Be sure that your floors are free of things that could trip you - throw rugs, electrical cords, small objects. Avoid wet and waxed floors, especially with crutches and canes. F. Try to walk several times a day with rest periods between. G. Continue with all the exercises taught to you in the hospital. Again, make walking a part of your daily routine. SPECIAL CARE INSTRUCTIONS: VERY IMPORTANT TO READ AND REVIEW A. You may still be at risk for phlebitis and blood clots. 1. Wear surgical stockings (ALFIE hose) for 2 weeks after surgery to improve circulation and reduce swelling. 2. Take Aspirin 81mg twice daily for 4 weeks or as directed by your doctor. This is your blood thinner. 3. High risk patients may be prescribed a stronger blood thinner if necessary. 4. If you are on Coumadin normally, your family doctor/pillar man should monitor your blood work. Expect a phone call the day of or the day after bloodwork is drawn to adjust your dosage. B. You must take antibiotics before having dental work, bladder, bowel and other surgery. Your doctor will provide you with a permanent card to carry describing precautions. C. Call [facility] if you have a fever, redness or swelling around the incision, cloudy drainage from incision, or sudden increase in pain in your hip, not relieved by your regular pain medication. D. Please call the office at if you have any concerns or questions about your operation or recovery. * YOU MAY SHOWER, NO TUB BATHS UNTIL CLEARED BY YOUR DOCTOR. - Keep an extra close eye on the top portion of your incision. Be sure to ke ep clean & dry. * WEAR ALFIE HOSE 20 HOURS PER DAY FOR 2 WEEKS. * YOU MAY PROGRESS FROM A WALKER, TO A CANE, TO INDEPENDENT AT YOUR OWN PACE. * MOST PATIENTS WILL HAVE HOME NURSING FOR THERAPY. IF YOU DECIDE TO DO OUTPATIENT PHYSICAL THERAPY, PLEASE SCHEDULE THIS 3 TIMES PER WEEK. * If your incision is dry you may remove dressing and leave uncovered. IF INCISION IS LEAKING THROUGH DRESSING, PLEASE CALL THE OFFICE . FOLLOW UP VISIT: If appointment is not already scheduled: Please call [facility] to make a follow-up appointment for 2 weeks after your surgery at . Pending Studies at Discharge: No Stand-Alone Forms: My [email or web address], Smoking Cessation Medications and DC Order Prescriptions: New aspirin 81 mg Tablet,Delayed Release (Dr/Ec) 81 mg PO BID Qty: 56 RF: 0 acetaminophen 500 mg Tablet 1,000 mg PO Q8 PRN (Reason: pain/fevers) Qty: 90 RF: 0 oxycodone 5 mg Tablet 5 mg PO Q6H MDD 4 PRN (Reason: pain) Qty: 30 RF: 0 sennosides [Senokot] 8.6 mg Tablet 17.2 mg PO HS PRN (Reason: constipation) Qty: 28 RF: 0 Continued clonazepam 0.5 mg Tablet 0.5 mg PO HS RF: 0 amlodipine [Norvasc] 5 mg Tablet 5 mg PO QAM RF: 0 potassium chloride [Klor-Con M20] 20 mEq Tablet,Er Particles/Crystals 20 meq PO QAM RF: 0 simvastatin 20 mg Tablet 20 mg PO HS RF: 0 pioglitazone [Actos] 30 mg Tablet 30 mg PO QAM RF: 0 olmesartan-hydrochlorothiazide [Benicar HCT] 40-12.5 mg Tablet 1 tab PO QAM RF: 0 Calcium 600 + D(3) 600 mg calcium- 200 unit Capsule 1 cap PO BID RF: 0 coQ10 (ubiquinol) 200 mg Capsule 200 mg PO HS RF: 0 Centrum Silver Women 8 mg iron-400 mcg-300 mcg Tablet 1 tab PO QAM RF: 0 fluoxetine 60 mg Tablet 60 mg PO QAM RF: 0 Macular Health Formula 5-1-7.5 mg Capsule 1 cap PO QAM RF: 0 paroxetine HCl 60 mg PO DAILY RF: 0 Discharge Orders: Discharge Order (Routine); Ordered 03/31/20 Ordered By: [place]heta Admission Data Admit Date/Time: 03/30/20 09:22 Attending Provider: [place] Admit Provider: [place] Primary Care Provider: Arthur García Other Providers: [facility] Other Interventions: Discharge Summary Assessment (RN) Last Done: 03/31/20 12:27
[2020-04-06] MEDS ORDERED: INFLUENZA VACCINE HIGH DOSE 65+ 0.5 ML SYR IM ONE (09:00)
[2020-04-06] MEDS ORDERED: INFLUENZA ADMINISTRATION CHARGE ONE (09:00)
== END 2020-03-31 15:23 | disposition home health service (06) ==
LOC: ASU 04:47 → 3E 04:47